=== PATIENT | male | born 1980 | race African-American/Black ===

== ENCOUNTER 2019-08-18 10:11 | Emergency (ER) | payer SELFPAY | END 2019-08-18 13:22 | disposition left against medical advice (07) | LOC: ERS 10:11 | DX: S11.93XA Puncture wound without foreign body of unspecified part of neck, initial encounter (principal); F17.210 Nicotine dependence, cigarettes, uncomplicated; X78.1XXA Intentional self-harm by knife, initial encounter | CPT/HCPCS: 99282 ==

== ENCOUNTER 2019-08-18 13:48 | Emergency (ER) | payer SELFPAY ==
[2019-08-18 15:08] LABS: #Basophils 0.1 thou/uL (0.0-0.2); #Lymphocytes 1.5 thou/uL (1.20-3.40); #Monocytes 0.8 thou/uL (0.11-0.59); #Neutrophils 5.7 thou/uL (1.40-6.50); %Basophils 0.8 % (0.0-1.0); %Eosinophils 0.4 % (0.0-10.0); %Lymphocytes 19.1 % (21.0-51.0); %Monocytes 9.4 % (0.0-10.0); %Neutrophils 70.4 % (42.0-75.0); Hemoglobin 13.5 g/dL (14.0-18.0); Mean Corpuscular HGB CONC 33.8 g/dL (32.0-36.0); Mean Corpuscular Hemoglobin 31.5 pg (27.0-31.0); Mean Corpuscular Volume 93.2 fL (78.0-98.0); Platelet Count 267 thou/uL (130-400); RBC Distribution Width 10.9 % (11.5-14.5); Red Blood Cell (RBC) Count 4.28 mill/uL (4.70-6.10); White Blood Cell (WBC) Count 8.1 thou/uL (4.8-10.8)
[2019-08-18 15:23] LABS: Bacteria/HPF None Seen HPF (None Seen); Bilirubin Negative (Negative); Blood, Urine Trace (Negative); Clarity Clear (Clear); Glucose, Urine (Dipstick) Normal (Negative); Leukocyte 75 Leu/uL (Negative); Nitrite Negative (Negative); Protein, Urine (Dipstick) 70 mg/dL (Neg-Trace); RBC/HPF 0-3 HPF (0-3); Squamous Epithelial None Seen HPF (0-3)
[2019-08-18] MEDS ORDERED: Iopamidol-370 76% 500 ML 1 ML ONE (15:26)
[2019-08-18 15:41] LABS: ALT (SGPT) 38 U/L (8-55); AST (SGOT) 39 U/L (5-34); Acetaminophen Less than 6.0 mcg/mL (10.0-30.0); Albumin 4.4 g/dL (3.5-5.0); Alcohol Less than 10 mg/dL (Less than 10); Alkaline Phosphatase 80 U/L (40-110); Anion Gap 10 mmol/L (10-20); BUN (Urea Nitrogen) 9 mg/dL (8.9-20.6); Bilirubin, Total 0.6 mg/dL (0.2-1.2); CK (CPK) 1591 U/L (30-200); Calc. Creatinine Clearance 0 mL/min (70-130); Calcium 9.2 mg/dL (7.8-10.44); Carbon Dioxide 29 mmol/L (22-29); Chloride 103 mmol/L (98-107); Estimated GFR-MDRD Greater than 90; Globulin 2.8 g/dL (2.4-3.5); Glucose 101 mg/dL (70-105); Potassium 3.3 mmol/L (3.5-5.1); Protein, Total 7.2 g/dL (6.0-8.3); Salicylate Less than 8.0 mg/dL (15.0-30.0); Sodium 139 mmol/L (136-145)
[2019-08-18 16:23] LABS: Amphetamine Not Detected (NotDetected); Barbiturates Screen Not Detected (NotDetected); Benzodiazepine Screen Not Detected (NotDetected); Cocaine Metabolite Screen Not Detected (NotDetected); Medtox Control Line Valid? VALID (VALID); Medtox Reader # READER 1; Methadone Not Detected (NotDetected); Methamphetamine Not Detected (NotDetected); Opiate Screen Not Detected (NotDetected); Oxycodone Screen Not Detected (NotDetected); Phencyclidine (PCP) Detected (NotDetected); THC/Cannabinoid Screen Not Detected (NotDetected); Tricyclic Screen Not Detected (NotDetected)
--- NOTE | 2019-08-18 16:24 | CT ---
EXAM: POSTCONTRAST SOFT TISSUE NECK CT 08/18/19 HISTORY: Neck laceration. COMPARISON: None. FINDINGS: Visualized brain parenchyma is unremarkable. The visualized orbits and globes are unremarkable. Adequate aeration of the visualized paranasal sinuses. 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 Aerodigestive tract appears to be patent. No obvious mucosal abnormality. Nonspecific mild fullness o f the nasopharynx. Nonemergent direct visualization is recommended. No obvious masses in the oral cav ity. Midline fatty raphae of the tongue is preserved. Epiglottis has a normal caliber. Pre-epiglottic fat is preserved. Symmetric attenuation of the parotid and submandibular glands. Unremarkable thyroid gland. The great vessels of the neck appear to be patent. Cervical spine vertebral body height is maintained. No fracture. No significant central canal stenos is or foraminal narrowing. Evaluation is limited by technique. No evidence of lymphadenopathy by size criteria. Upper mediastinum and lung apices are unremarkable. There is symmetric attenuation of the paraspinal muscles. There is mild stranding of the anterior subcutaneous fat. The platysma appears to be intact. at The l evel of the palpable marker in the anterior left neck, there does not appear to be any evidence of so ft tissue injury or vascular injury. Branches of the external jugular vein do course underneath the m arker but do not appear to have been injured. No evidence of extraluminal contrast. Nonspecific, none nlarged soft tissue neck lymph nodes are noted. IMPRESSION: No CT evidence of posttraumatic injury. POS: CET
== END 2019-08-18 19:55 | disposition home or self-care (01) ==
LOC: ERS 13:48
DX: S11.91XA Laceration without foreign body of unspecified part of neck, initial encounter (principal); M62.82 Rhabdomyolysis; F19.959 Other psychoactive substance use, unspecified with psychoactive substance-induced psychotic disorder, unspecified; F17.210 Nicotine dependence, cigarettes, uncomplicated; W26.0XXA Contact with knife, initial encounter
CPT/HCPCS: 36415; 70491; 80053; 80306; 80307; 81003; 81015; 82550; 84443; 85025; 96360; Q9967

== ENCOUNTER 2023-06-12 12:08 | Day surgery (SDC) | payer SELFPAY ==
[2023-06-12] MEDS ORDERED: Ibuprofen 800 MG TAB ONE (12:35)
[2023-06-12 12:54] LABS: #Basophils 0.1 thou/uL (0.0-0.2); #Monocytes 0.4 thou/uL (0.11-0.59); #Neutrophils 3.3 thou/uL (1.40-6.50); %Eosinophils 0.2 % (0.0-10.0); %Neutrophils 66.4 % (42.0-75.0); Hematocrit 41.3 % (42.0-52.0); Hemoglobin 13.6 g/dL (14.0-18.0); Mean Corpuscular HGB CONC 32.9 g/dL (32.0-36.0); Mean Corpuscular Hemoglobin 31.2 pg (27.0-31.0); Mean Corpuscular Volume 94.7 fl (78.0-98.0); Mean Platelet Volume 9.6 fL (7.4-10.4); Platelet Count 243 10x3/uL (130-400); RBC Distribution Width 11.8 % (11.5-14.5); Red Blood Cell (RBC) Count 4.36 mill/uL (4.70-6.10)
[2023-06-12 13:19] LABS: ALT (SGPT) 61 U/L (8-55); AST (SGOT) 86 U/L (5-34); Albumin 5.3 g/dL (3.5-5.0); Alkaline Phosphatase 66 U/L (40-110); Anion Gap 20 mmol/L (10-20); BUN (Urea Nitrogen) 4 mg/dL (8.9-20.6); Bilirubin, Total 0.3 mg/dL (0.2-1.2); CK (CPK) 1325 U/L (30-200); Calc. Creatinine Clearance 0 mL/min (70-130); Calcium 9.6 mg/dL (7.8-10.44); Carbon Dioxide 23 mmol/L (22-29); Chloride 104 mmol/L (98-107); Estimated GFR 110; Globulin 2.4 g/dL (2.4-3.5); Glucose 89 mg/dL (70-105); Potassium 3.5 mmol/L (3.5-5.1); Protein, Total 7.7 g/dL (6.0-8.3); Sodium 143 mmol/L (136-145)
[2023-06-12 13:21] LABS: Acetaminophen Less than 10 mcg/mL (10.0-30.0); Alcohol 52.2 mg/dL (Less than 10); Magnesium 1.9 mg/dL (1.6-2.6); Salicylate Less than 8.0 mg/dL (15.0-30.0)
[2023-06-12] MEDS ORDERED: Morphine 4 MG/ML VIAL ONE (13:32)
[2023-06-12] MEDS ORDERED: Ondansetron PF 4 MG/2 ML Vial ONE (13:32)
[2023-06-12 13:45] LABS: Troponin I Less than 0.010 ng/mL (< 0.028)
[2023-06-12] MEDS ORDERED: PROPOFOL 0 ML ONE (14:24)
[2023-06-12] MEDS ORDERED: PROPOFOL 20 ML ONE ×3 (15:06→16:58)
[2023-06-12 18:43] LABS: Bilirubin Negative (Negative); Blood, Urine 3+ (Negative); CAUTI Indications for Culture Alt mental st,lethar; Clarity Clear (Clear); Glucose, Urine (Dipstick) Normal (Negative); Ketone, Urine 60 mg/dL (Negative); Leukocyte 75 Leu/uL (Negative); Nitrite Negative (Negative); Protein, Urine (Dipstick) 200 mg/dL (Neg-Trace); RBC/HPF 0-3 HPF (0-3); Specific Gravity, Urine 1.029 (1.002-1.036); Squamous Epithelial 0-3 HPF (0-3); Urobilinogen Normal mg/dL (Less than 2)
[2023-06-12 18:45] LABS: Bacteria/HPF 1+ HPF (None Seen)
[2023-06-12 18:46] LABS: Urine Culture Reflex No No
[2023-06-12] MEDS ORDERED: Lidocaine 1% PF 5 ML VIAL ONE (18:46)
[2023-06-12] MEDS ORDERED: Succinylcholine 200 MG/10 ml SYRINGE FS ONE (18:46)
[2023-06-12] MEDS ORDERED: PROPOFOL 200 MG/20 ML VIAL ONE (18:46)
[2023-06-12 18:49] LABS: Amphetamine Not Detected (NotDetected); Barbiturates Screen Not Detected (NotDetected); Benzodiazepine Screen Not Detected (NotDetected); Cocaine Metabolite Screen Not Detected (NotDetected); Methadone Not Detected (NotDetected); Methamphetamine Not Detected (NotDetected); Opiate Screen Detected (NotDetected); Oxycodone Screen Not Detected (NotDetected); Phencyclidine (PCP) Detected (NotDetected); THC/Cannabinoid Screen Not Detected (NotDetected); Tricyclic Screen Not Detected (NotDetected)
== END 2023-06-12 20:10 | disposition home or self-care (01) ==
LOC: ERS 12:08 → SDC/OP 18:40
PROVIDERS: ATTEND Specialist
PROC: 0RSKXZZ Reposition Left Shoulder Joint, External Approach (ICD-10-PCS; principal; 2023-06-12)
DX: S43.005A Unspecified dislocation of left shoulder joint, initial encounter (principal); X58.XXXA Exposure to other specified factors, initial encounter; F15.10 Other stimulant abuse, uncomplicated; F14.10 Cocaine abuse, uncomplicated; F17.210 Nicotine dependence, cigarettes, uncomplicated
CPT/HCPCS: 36415; 36416; 70450; 71045; 72125; 80053; 80306; 80307; 81001; 82550; 83735; 84484; 85025; 93005; J2270; J2405; J2704

== ENCOUNTER 2024-09-04 23:24 | Emergency (ER) | payer SELFPAY | END 2024-09-05 00:54 | disposition home or self-care (01) | LOC: ERS 23:24 | DX: M79.662 Pain in left lower leg (principal); M79.661 Pain in right lower leg; F17.210 Nicotine dependence, cigarettes, uncomplicated; W22.8XXA Striking against or struck by other objects, initial encounter | CPT/HCPCS: 99283 ==

== ENCOUNTER 2024-09-08 10:58 | Emergency (ER) | payer SELFPAY ==
[2024-09-08 12:38] LABS: #Basophils 0.04 10x3/uL (0.0-0.2); %Basophils 0.9 % (0.0-1.0); %Eosinophils 1.1 % (0.0-10.0); %Lymphocytes 35.3 % (21.0-51.0); %Monocytes 5.8 % (0.0-10.0); %Neutrophils 56.7 % (42.0-75.0); Hematocrit 40.6 % (42.0-52.0); Hemoglobin 13.2 g/dL (14.0-18.0); Mean Corpuscular HGB CONC 32.5 g/dL (32.0-36.0); Mean Corpuscular Hemoglobin 30.8 pg (27.0-31.0); Mean Corpuscular Volume 94.6 fL (78.0-98.0); Mean Platelet Volume 8.6 fL (7.4-10.4); Platelet Count 293 10x3/uL (130-400); RBC Distribution Width 11.6 % (11.5-14.5); Red Blood Cell (RBC) Count 4.29 mill/uL (4.70-6.10)
[2024-09-08 12:58] LABS: Prothrombin Time 12.6 sec (12.0-14.7)
[2024-09-08 13:14] LABS: Acetaminophen Less than 10 mcg/mL (Less than 10); Alcohol 80.1 mg/dL (Less than 10); Salicylate Less than 8.0 mg/dL (Less than 8.0)
[2024-09-08 13:15] LABS: ALT (SGPT) 23 U/L (Less than 45); AST (SGOT) 50 U/L (11-34); Albumin 4.1 g/dL (3.1-4.5); Alkaline Phosphatase 74 U/L (40-110); Anion Gap 15 mmol/L (10-20); BUN (Urea Nitrogen) 6 mg/dL (8.9-20.6); Bilirubin, Total 0.4 mg/dL (0.3-1.2); Calc. Creatinine Clearance 0 mL/min (70-130); Calcium 9.1 mg/dL (7.8-10.44); Carbon Dioxide 25 mmol/L (22-29); Chloride 106 mmol/L (98-107); Estimated GFR 112; Globulin 3.2 g/dL (2.4-3.5); Glucose 132 mg/dL (70-105); Potassium 3.6 mmol/L (3.5-5.1); Protein, Total 7.3 g/dL (6.0-8.3); Sodium 142 mmol/L (136-145)
[2024-09-08] MEDS ORDERED: Benzonatate 100 MG CAP ONE (14:55)
[2024-09-08] MEDS ORDERED: Ketorolac Tromethamine 30 MG (1 mL) VIAL ONE (14:55)
[2024-09-08] MEDS ORDERED: HYDROcodone/Acetaminophen 5/325 mg Tablet ONE (14:56)
== END 2024-09-08 15:35 | disposition home or self-care (01) ==
LOC: ERS 10:58
DX: S02.2XXA Fracture of nasal bones, initial encounter for closed fracture (principal); S01.112A Laceration without foreign body of left eyelid and periocular area, initial encounter; F17.210 Nicotine dependence, cigarettes, uncomplicated; Y04.8XXA Assault by other bodily force, initial encounter
CPT/HCPCS: 36415; 70450; 70486; 72125; 80053; 80307; 85025; 85610; 85730; 96372; J1885